=== PATIENT | female | born 1945 | race Caucasian/White ===

== ENCOUNTER 2016-09-17 14:07 | Observation (INO) | payer OTHER ==
[2016-09-16 20:00] VITALS: PULSE 79
[~2016-09-17] VITALS: Ht 165.1 cm; Wt 65.0 kg
[~2016-09-17 14:07] MED LIST: MECL25; NIFE90TA37; PREM0.622; Z.0.UNKNOWN
[2016-09-17 14:25] VITALS: BP 168/77; PULSE 84; RESP 18; TEMP 97; O2SAT 96
[2016-09-17 14:46] LABS: BASOPHIL # 0.1 TH/MM3 (0-0.2); BASOPHIL % 1.8 % (0.0-2.0); EOSINOPHIL # 0.2 TH/MM3 (0-0.4); EOSINOPHIL % 3.4 % (0.0-4.0); HEMATOCRIT 42.6 % (35.0-46.0); HEMO FLAGS DIFF FINAL; LYMPH % 31.9 % (9.0-44.0); LYMPHOCYTE # 1.8 TH/MM3 (1.0-4.8); MEAN CELL VOLUME 93.7 FL (80.0-100.0); MEAN CORPUSCULAR HEMOGLOBIN 32.2 PG (27.0-34.0); MEAN CORPUSCULAR HGB CONC 34.4 % (32.0-36.0); MONO % 10.6 % (0.0-8.0); NEUT % 52.3 % (16.0-70.0); PLATELET COUNT 166 TH/MM3 (150-450); RED BLOOD COUNT 4.55 MIL/MM3 (4.00-5.30); RED CELL DISTRIBUTION WIDTH 13.9 % (11.6-17.2); WHITE BLOOD COUNT 5.7 TH/MM3 (4.0-11.0)
--- NOTE | 2016-09-17 14:48 | PD ---
HPI Chief Complaint: Chest Pain Time Seen by Provider: 14:48 Travel History International Travel<30 days: No Contact w/Intl Traveler<30days: No Traveled to known affect area: No History of Present Illness HPI 70-year-old female came to the emergency room with history of left-sided chest pain radiating down her left arm. Patient started about 2 hours ago. Patient took 1 baby aspirin and called 911. She was given one sublingual nitroglycerin which he says helped ease the pain. Currently she has a pressure which is 7-8 out of 10. Patient has history of coronary artery disease. She has had stents put in in the last one was one year ago. It was done in [place]. Patient has history of hypertension and diabetes as well. She is currently a smoker. [facility] Past Medical History Narrative Medical List of her past medical, surgical, social and family history was reviewed from the nursing note. Musculoskeletal: Yes (CHRONIC BACK PAIN) Pancreatitis: Yes Past Surgical History Hysterectomy: Yes Social History Alcohol Use: No Tobacco Use: Yes (1 PACK DAILY) Allergies-Medications (Allergen,Severity, Reaction): Coded Allergies: Codeine (Verified Allergy, Mild, RASH, 05/28/06) Nut Tree (Verified Allergy, Mild, 05/28/06) Sulfa (Verified Allergy, Mild, SWELLING, 05/28/06) Comments List of her allergies reviewed from the nursing note. Reported Meds & Prescriptions Reported Meds & Active Scripts Active Reported Metformin (Metformin HCl) 500 Mg Tab 500 Mg PO BID With meals Prednisone 5 Mg Tab 5 Mg PO DAILY Lisinopril 40 Mg Tab 50 Mg PO BID Simvastatin 40 Mg Tab 40 Mg PO HS Nifedipine ER (Nifedipine) 90 Mg Tab 90 Mg PO DAILY Meclizine (Meclizine HCl) 25 Mg Tab 25 Mg PO DIRECTED PRN Narrative Medication List of her home medications reviewed from the nursing note. Review of Systems Except as stated in HPI: all other systems reviewed are Neg Physical Exam Narrative GENERAL: Awake, alert, moderate distress SKIN: Focused skin assessment warm/dry. HEAD: Atraumatic. Normocephalic. EYES: Pupils equal and round. No scleral icterus. No injection or drainage. ENT: No nasal bleeding or discharge. Mucous membranes pink and moist. NECK: Trachea midline. No JVD. CARDIOVASCULAR: Regular rate and rhythm. No murmur appreciated. RESPIRATORY: No accessory muscle use. Clear to auscultation. Breath sounds equal bilaterally. GASTROINTESTINAL: Abdomen soft, non-tender, nondistended. Hepatic and splenic margins not palpable. MUSCULOSKELETAL: No obvious deformities. No clubbing. No cyanosis. No edema. NEUROLOGICAL: Awake and alert. No obvious cranial nerve deficits. Motor grossly within normal limits. Normal speech. PSYCHIATRIC: Appropriate mood and affect; insight and judgment normal. Data Data Last Documented VS Vital Signs Date Time Temp Pulse Resp B/P Pulse Ox O2 Delivery O2 Flow Rate FiO2 09/17/16 14:25 97.0 84 18 168/77 96 Orders Electrocardiogram (09/17/16 14:14) Complete Blood Count With Diff (09/17/16 14:14) Basic Metabolic Panel (Bmp) (09/17/16 14:14) Ckmb (Isoenzyme) Profile (09/17/16 14:14) Troponin I (09/17/16 14:14) Chest, Single Ap (09/17/16 14:14) Iv Access Insert/Monitor (09/17/16 14:14) Ecg Monitoring (09/17/16 14:14) Oxygen Administration (09/17/16 14:14) Oximetry (09/17/16 14:14) Nitroglycerin Sl (Nitrostat Sl) (09/17/16 15:00) Admit Order (Ed Use Only) (09/17/16 15:14) Labs Laboratory Tests Test 09/17/16 14:25 White Blood Count 5.7 TH/MM3 Red Blood Count 4.55 MIL/MM3 Hemoglobin 14.6 GM/DL Hematocrit 42.6 % Mean Corpuscular Volume 93.7 FL Mean Corpuscular Hemoglobin 32.2 PG Mean Corpuscular Hemoglobin 34.4 % Concent Red Cell Distribution Width 13.9 % Platelet Count 166 TH/MM3 Mean Platelet Volume 9.4 FL Neutrophils (%) (Auto) 52.3 % Lymphocytes (%) (Auto) 31.9 % Monocytes (%) (Auto) 10.6 % Eosinophils (%) (Auto) 3.4 % Basophils (%) (Auto) 1.8 % Neutrophils # (Auto) 3.0 TH/MM3 Lymphocytes # (Auto) 1.8 TH/MM3 Monocytes # (Auto) 0.6 TH/MM3 Eosinophils # (Auto) 0.2 TH/MM3 Basophils # (Auto) 0.1 TH/MM3 CBC Comment DIFF FINAL Differential Comment Sodium Level 139 MEQ/L Potassium Level 4.5 MEQ/L Chloride Level 105 MEQ/L Carbon Dioxide Level 31.2 MEQ/L Anion Gap 3 MEQ/L Blood Urea Nitrogen 24 MG/DL Creatinine 1.05 MG/DL Estimat Glomerular Filtration 52 ML/MIN Rate Random Glucose 132 MG/DL Calcium Level 9.2 MG/DL Total Creatine Kinase 79 U/L Troponin I LESS THAN 0.02 NG/ML MDM Medical Decision Making Medical Screen Exam Complete: Yes Emergency Medical Condition: Yes Medical Record Reviewed: Yes Interpretation(s) Twelve-lead EKG was reviewed by me. Normal sinus rhythm, normal axis, nonspecific ST-T wave changes. Heart rate of 84 bpm. Differential Diagnosis ACS, non-STEMI, nonspecific chest pain Narrative Course 3:13 PM blood test results of back and troponin is negative. Patient was given one sublingual nitroglycerin. I will admit her to the chest pain center for rule out given all her risk factors. Procedures EKG Prior to Arrival: Yes Diagnosis Primary Impression: Chest pain Qualified Code: R07.9 - Chest pain, unspecified type Admitting Information Admitting Physician Requests: Observation Dianne Nation MD Sep 17, 2016 14:48
[2016-09-17] MEDS ORDERED: NITROGLYCERIN 0.4 MG SL 25 TABS/BTL SL ONE (15:00)
[2016-09-17 15:06] LABS: ANION GAP 3 MEQ/L (5-15); BICARBONATE 31.2 MEQ/L (21.0-32.0); BLOOD UREA NITROGEN 24 MG/DL (7-18); CHLORIDE 105 MEQ/L (98-107); GLOMERULAR FILTRATION RATE 52 ML/MIN (>89); SODIUM (NA) 139 MEQ/L (136-145)
[2016-09-17 15:09] LABS: CREATINE KINASE 79 U/L (26-192); POTASSIUM 4.5 MEQ/L (3.5-5.1)
--- NOTE | 2016-09-17 15:30 | RADRPT ---
EXAM DATE/TIME: 09/17/2016 14:29 [facility] COMPARISON: No previous studies available for comparison. INDICATIONS : Chest pressure. MEDICAL HISTORY : Congestive heart failure. 4 strokes SURGICAL HISTORY : None. ENCOUNTER: Initial ACUITY: 1 day PAIN SCORE: 8/10 LOCATION: Bilateral chest FINDINGS: A single view of the chest demonstrates the lungs to be symmetrically aerated without evidence of mas s, infiltrate or effusion. The cardiomediastinal contours are unremarkable. Osseous structures are intact. CONCLUSION: No acute disease. Raj Miner MD on September 17, 2016 at 15:28 Board Certified Radiologist. This report was verified electronically.
[2016-09-17 15:35] VITALS: BP 186/84; PULSE 74; RESP 20; O2SAT 95
[2016-09-17] MEDS ORDERED: NIFE90TA2 PO (15:37)
[2016-09-17] MEDS ORDERED: MECL-62 PO (15:37)
[2016-09-17] MEDS ORDERED: SIMV40TA PO (15:37)
[2016-09-17] MEDS ORDERED: LISI40TA PO (15:37)
[2016-09-17] MEDS ORDERED: PRED5TAB PO (15:38)
[2016-09-17] MEDS ORDERED: METF500T PO (15:39)
[2016-09-17 15:47] VITALS: BP 188/80; PULSE 76; O2SAT 94
[2016-09-17 17:06] VITALS: BP 160/81
[2016-09-17] MEDS ORDERED: GLUCAGON 1 MG/ML VIAL IM/SQ PRN (17:30)
[2016-09-17] MEDS ORDERED: SODIUM CHLORIDE 0.9% FLUSH 5 ML FLUSH IVF PRN (17:30)
[2016-09-17] MEDS ORDERED: ONDANSETRON HCL 4 MG/2 ML VIAL IV PRN (17:30)
[2016-09-17] MEDS ORDERED: RESP: ALBUTEROL 2.5 MG/IPRATROPIUM 0.5 MG NEB (PRN) INH (17:30)
[2016-09-17] MEDS ORDERED: cloNIDine HCL 0.1 MG TAB PO PRN (17:30)
[2016-09-17] MEDS ORDERED: ALPRAZolam 0.25 MG TAB PO PRN (17:30)
[2016-09-17] MEDS ORDERED: DEXTROSE 50% IN WATER 50 ML VIAL(D50) IV PRN (17:30)
--- NOTE | 2016-09-17 17:37 | HHI.HP ---
[facility] Primary Care Physician Desean Merino DO Chief Complaint Chest pain History of Present Illness This is a 70-year-old female that presents to the ED with history of CAD, peripheral vascular disease, diabetes, hypertension, hyperlipidemia, lupus, and tobacco abuse with a complaint of chest discomfort. She states that she developed a left-sided sharp chest discomfort today and then soon later turned into a discomfort as if somebody was sitting on her chest. This is similar to when she her stent last year. She took a baby aspirin and called 911. She was given 1 subluminal nitroglycerin which did seem to help discomfort. Her only patient denies chest discomfort. She was short of breath but denies nausea or diaphoresis with her symptoms. She recently moved here from [place]. She does not have a local sausage stringer. Dr. Merino is her primary care physician. Review of Systems General: Patient denies fevers, chills recent, and recent travel HEENT: Patient denies headache, sore throat, difficulty swallowing. Cardiovascular: Has the chest discomfort as mentioned above. Denies sensation of heart beating rapidly or irregularly. No syncope. Denies diaphoresis. Respiratory: Patient has intermittent short of breath. Denies inspirational chest discomfort. Denies coughing wheezing or hemoptysis. GI: Patient denies nausea, vomiting, diarrhea, abdominal pain, bloody stools. Musculoskeletal: Patient denies joint pain or edema. Denies calf pain or edema. Neurovascular: Patient denies numbness, tingling, weakness in extremities. Denies headache. Endocrine: Denies polyuria and polydipsia. Hematologic: Denies easy bruising. Skin: Denies rash or itching. Past Family Social History Allergies: Coded Allergies: Codeine (Verified Allergy, Mild, RASH, 05/28/06) Nut Tree (Verified Allergy, Mild, 05/28/06) Sulfa (Verified Allergy, Mild, SWELLING, 05/28/06) Past Medical History CAD with a reported stent about a year ago in [place]. Peripheral vascular disease with reported bilateral femoropopliteal bypass while in [place]. Diabetes , hypertension, hyperlipidemia, lupus, and tobacco abuse. Past Surgical History Heart catheterization with stenting about a year ago. Bilateral femoropopliteal bypass. Hysterectomy. Reported Medications Reported Meds & Active Scripts Active Reported Metformin (Metformin HCl) 500 Mg Tab 500 Mg PO BID With meals Prednisone 5 Mg Tab 5 Mg PO DAILY Lisinopril 40 Mg Tab 50 Mg PO BID Simvastatin 40 Mg Tab 40 Mg PO HS Nifedipine ER (Nifedipine) 90 Mg Tab 90 Mg PO DAILY Meclizine (Meclizine HCl) 25 Mg Tab 25 Mg PO DIRECTED PRN Active Ordered Medications Current Medications Medications (Trade) Dose Ordered Sig/Omnica Route Start Time Stop Time Status Last Admin (Deltasone) 5 mg DAILY PO 09/18/16 09:00 (Procardia Xl) 90 mg DAILY PO 09/18/16 09:00 (Pravachol) 80 mg HS PO 09/17/16 21:00 (NS Flush) 2 ml UNSCH PRN IVF 09/17/16 17:30 UNV (NS Flush) 2 ml BID IVF 09/17/16 21:00 UNV (Tylenol) 500 mg Q4H PRN PO 09/17/16 17:30 UNV (Zofran Inj) 4 mg Q6H PRN IV 09/17/16 17:30 UNV (Xanax) 0.25 mg Q8H PRN PO 09/17/16 17:30 UNV (Catapres) 0.1 mg Q4H PRN PO 09/17/16 17:30 UNV (D50w (Vial) Inj) 25 ml UNSCH PRN IV 09/17/16 17:30 UNV (Glucagon Inj) 1 mg UNSCH PRN IM/SQ 09/17/16 17:30 UNV Family History There is family history of CAD. Social History Patient smokes approximately one pack of cigarettes daily. Physical Exam Vital Signs Vital Signs Date Time Temp Pulse Resp B/P Pulse Ox O2 Delivery O2 Flow Rate FiO2 09/17/16 17:06 160/81 09/17/16 15:47 76 188/80 94 09/17/16 15:38 Room Air 09/17/16 15:35 74 20 186/84 95 Room Air 09/17/16 14:25 97.0 84 18 168/77 96 Physical Exam GENERAL: This is a well-nourished, well-developed patient, in no apparent distress. Patient speaks in clear complete sentences. Patient is pleasant. HEENT: Head is atraumatic and normocephalic. Neck is supple without lymphadenopathy and trachea is midline. No JVD or carotid bruits. CARDIOVASCULAR: Regular rate and rhythm without murmurs, gallops, or rubs. RESPIRATORY: Some scattered rhonchi. No wheezing or rales. Breath sounds equal bilaterally. Chest wall is tender which is a sharp discomfort that she was having. No use of accessory muscles. GASTROINTESTINAL: Abdomen is nontender, nondistended. Abdomen soft. No obvious pulsatile mass or bruit. No CVA tenderness. Strong femoral pulses bilaterally with bilateral femoral bruits. Normal bowel sounds in all quadrants. MUSCULOSKELETAL: Patient is moving upper and lower extremities freely. No calf tenderness or edema, no Homans sign. Strong pulses in upper extremities. No palpable dorsalis pedis or posterior tibial pulses bilaterally. However feet are warm. NEUROLOGICAL: Patient is alert and oriented. Cranial nerves 2-12 are grossly intact. No focal deficits and speech is clear. SKIN: No rash and turgor is normal. Laboratory Laboratory Tests Test 09/17/16 14:25 White Blood Count 5.7 Red Blood Count 4.55 Hemoglobin 14.6 Hematocrit 42.6 Mean Corpuscular Volume 93.7 Mean Corpuscular Hemoglobin 32.2 Mean Corpuscular Hemoglobin 34.4 Concent Red Cell Distribution Width 13.9 Platelet Count 166 Mean Platelet Volume 9.4 Neutrophils (%) (Auto) 52.3 Lymphocytes (%) (Auto) 31.9 Monocytes (%) (Auto) 10.6 Eosinophils (%) (Auto) 3.4 Basophils (%) (Auto) 1.8 Neutrophils # (Auto) 3.0 Lymphocytes # (Auto) 1.8 Monocytes # (Auto) 0.6 Eosinophils # (Auto) 0.2 Basophils # (Auto) 0.1 CBC Comment DIFF FINAL Differential Comment Sodium Level 139 Potassium Level 4.5 Chloride Level 105 Carbon Dioxide Level 31.2 Anion Gap 3 Blood Urea Nitrogen 24 Creatinine 1.05 Estimat Glomerular Filtration 52 Rate Random Glucose 132 Calcium Level 9.2 Total Creatine Kinase 79 Troponin I LESS THAN 0.02 Result Diagram: 09/17/16 1425 09/17/16 1425 Imaging Last 24 hours Impressions Chest X-Ray 09/17/16 1414 Signed Impressions: Service Date/Time: August 14:29 - CONCLUSION: No acute disease. Raj Miner MD Course Initial EKG has sinus rhythm without any significant ST segment depressions or elevations. Assessment and Plan Assessment and Plan * Chest pain: Patient will continue to have serial cardiac enzymes and EKGs for ruling out purposes. She has been evaluated by Dr. Mcdaniel of cardiology in the chest pain center and will likely undergo a Lexiscan if she rules out. She would likely be discharged home if her stress test were to be nonischemic with instructions to follow-up with a local primary care physician as well as sausage stringer. * CAD: We'll reassess with stress testing. She will need to follow sausage stringer. * Hypertension: Continue current medication. * Hyperlipidemia: Continue current medication. * Diabetes: Hold metformin, cover with sliding scale coverage. She will be on a diabetic diet has been encouraged to follow same at discharge. She will likely resume her metformin at discharge as long as she has no contrast studies. * Peripheral vascular disease: Continue current medications. * Lupus: Continue current medications. * Tobacco abuse: Patient has been counseled on the importance of smoking cessation. Patient is stable at this time. She is agreeable to this plan. Guillermo Morales Sep 17, 2016 17:37
[2016-09-17 18:49] LABS: CREATINE KINASE 89 U/L (26-192)
[2016-09-17 19:34] VITALS: PULSE 79
[2016-09-17 20:00] VITALS: BP 182/80; PULSE 75; RESP 22; TEMP 96.1; O2SAT 95
[2016-09-17] MEDS: SODIUM CHLORIDE 0.9% FLUSH 5 ML FLUSH IVF SCH (21:00)
[2016-09-17] MEDS ORDERED: PRAVASTATIN SOD 80 MG TAB PO SCH (21:00)
[2016-09-17 22:16] LABS: CREATINE KINASE 82 U/L (26-192)
[2016-09-17] MEDS: INSULIN ASPART SUPPLEMENTAL SCALE SQ SCH (22:37)
[2016-09-18] VITALS (11 sets, daily range): BP systolic 111–177; BP diastolic 56–78; PULSE 65–93; RESP 18–20; TEMP 96.1–98.2; O2SAT 94–96
[2016-09-18] MEDS: ACETAMINOPHEN 500 MG CPLT PO PRN ×2 (03:26→08:35)
[2016-09-18] MEDS: INSULIN ASPART SUPPLEMENTAL SCALE SQ SCH ×2 (05:30→11:00)
[2016-09-18] MEDS: SODIUM CHLORIDE 0.9% FLUSH 5 ML FLUSH IVF SCH (08:34)
[2016-09-18] MEDS ORDERED: NIFEdipine 90 MG SUSTAINED RELEASE TAB PO SCH (09:00)
[2016-09-18] MEDS ORDERED: predniSONE 5 MG TAB PO SCH (09:00)
[2016-09-18] MEDS ORDERED: REGADENOSON INJ 0.4 MG/5 ML SYR ONE (09:59)
[2016-09-18] MEDS ORDERED: TRAM50TA PO (11:09)
[2016-09-18] MEDS ORDERED: CREON12 PO (11:09)
--- NOTE | 2016-09-18 11:38 | RADRPT ---
EXAM DATE/TIME: 09/18/2016 09:20 [facility] COMPARISON: No previous studies available for comparison. INDICATIONS : Left sided chest pain for 1 day. Angina. Coronary artery disease. DOSE: 25.5 mCi Tc99m Myoview at stress. 8.1 mCi Tc99m Myoview at rest. 0.4 mg Lexiscan STRESS SYMPTOMS: Chest pressure with shortness of breath. EJECTION FRACTION: 69% MEDICAL HISTORY : Myocardial infarction. Congestive heart failure. Diabetes mellitus type 2. SURGICAL HISTORY : CABG Coronary artery stent. Back surgery. ENCOUNTER: Initial ACUITY: 1 day PAIN SCALE: 3/10 LOCATION: Left chest TECHNIQUE: The patient underwent pharmacologic stress with infusion of prescribed dose. Continuous ECG tracing was monitored during stress. Gated SPECT imaging was performed after stress and conventional SPECT i maging was performed at rest. The examination was performed on a SPECT/CT scanner, both attenuation and non-corrected datasets were reviewed. FINDINGS: DISTRIBUTION: The maximum perfused segment at stress is in the anteroseptal wall. PERFUSION STUDY: The pattern of perfusion at stress demonstrates a fixed defect in the anterolateral wall without any significant ischemia. GATED STUDY: There is intact wall motion and thickening without hypokinetic or dyskinetic segments. CONCLUSION: No appreciable ischemia. RISK CATEGORY: Low (<1% Annual Mortality Rate) Artem Blackwood MD on September 18, 2016 at 11:34 Board Certified Radiologist. This report was verified electronically.
--- NOTE | 2016-09-18 12:00 | HHI.DCPOC ---
Discharge Care Plan Diagnosis: (1) Chest wall pain (2) Hx of coronary artery disease Goals to Promote Your Health * To prevent worsening of your condition and complications * To maintain your health at the optimal level Directions to Meet Your Goals Take your medications as prescribed Follow your dietary instruction Follow activity as directed Keep your appointments as scheduled Take your immunizations and boosters as scheduled If your symptoms worsen call your PCP, if no PCP go to Urgent Care Center or Emergency Room Smoking is Dangerous to Your Health. Avoid second hand smoke Call the 24-hour hour crisis hotline for domestic abuse at [place] Sep 18, 2016 12:00
--- NOTE | 2016-09-18 13:09 | EKG ---
Date Performed: 09/17/2016 Time Performed: 21:33:40 PTAGE: 70 years EKG: Sinus rhythm POSSIBLE LEFT ATRIAL ENLARGEMENT Poor R wave progression ABNORMAL ECG PREVIOUS TRACING : 09/17/2016 17.54 Since previous tracing, no significant change noted DOCTOR: Nomi Mcdaniel Interpretating Date/Time 09/18/2016 13:08:23
--- NOTE | 2016-09-18 13:11 | EKG ---
Date Performed: 09/17/2016 Time Performed: 17:50:13 PTAGE: 70 years EKG: Sinus rhythm ARM LEADS REVERSED ATYPICAL ECG PREVIOUS TRACING : 09/17/2016 14.18 Compared to previous tracing ,limb lead reversal is new. DOCTOR: Nomi Mcdaniel Interpretating Date/Time 09/18/2016 13:10:37
--- NOTE | 2016-09-18 13:12 | EKG ---
Date Performed: 09/17/2016 Time Performed: 14:18:16 PTAGE: 70 years EKG: Sinus rhythm Poor R wave progression ABNORMAL ECG NO PREVIOUS TRACING DOCTOR: Nomi Mcdaniel Interpretating Date/Time 09/18/2016 13:11:58
--- NOTE | 2016-09-21 15:05 | TR ---
Date Performed: 09/18/2016 Time Performed: 09:49:54 DOCTOR: Blair Rios DRUG LIST: CLINICAL HISTORY: ANGINA REASON FOR TEST: Angina REASON FOR ENDING: OBSERVATION: CONCLUSION: Lexiscan stress test was performed under standard four minute protocol. Radionuclid e was injected one minute prior to ending the test. No electrocardiographic abormalities were present to suggest ischemia. Nuclear imaging and interpretation are pending. COMMENTS:
== END 2016-09-18 14:17 | disposition home or self-care (01) ==
LOC: NEPE 14:07 → NEDA 15:16 → NEPHCDU 18:16
DX: R07.9 Chest pain, unspecified (principal); I25.10 Atherosclerotic heart disease of native coronary artery without angina pectoris; I10 Essential (primary) hypertension; E11.51 Type 2 diabetes mellitus with diabetic peripheral angiopathy without gangrene; F17.210 Nicotine dependence, cigarettes, uncomplicated; M54.9 Dorsalgia, unspecified; G89.29 Other chronic pain; Z79.84 Long term (current) use of oral hypoglycemic drugs; Z79.899 Other long term (current) drug therapy; R06.02 Shortness of breath; E78.5 Hyperlipidemia, unspecified; R94.31 Abnormal electrocardiogram [ECG] [EKG]; Z95.5 Presence of coronary angioplasty implant and graft
CPT/HCPCS: 71010; 78452; 80048; 82550; 82948; 84484; 85025; 93005; 93017; 99285; A9502; G0378; J1815; J2785; J7512

== ENCOUNTER 2017-09-30 11:35 | Emergency (ER) | payer OTHER ==
[~2017-09-30] VITALS: Ht 160 cm; Wt 58.1 kg
[~2017-09-30 11:35] MED LIST changes: +CREON12 PO; +LISI40TA PO; +MECL-62 PO; -MECL25; +METF500T PO; +NIFE90TA2 PO; -NIFE90TA37; +PRED5TAB PO; -PREM0.622; +SIMV40TA PO; +TRAM50TA PO; -Z.0.UNKNOWN
[2017-09-30 11:39] VITALS: BP 161/70; PULSE 88; RESP 16; TEMP 97.8; O2SAT 100
[2017-09-30] MEDS ORDERED: LISI40TA PO (11:49)
[2017-09-30] MEDS ORDERED: ASPI81CH7 CHEW (11:57)
[2017-09-30] MEDS ORDERED: OXYMETAZOLINE HCL 0.05% 15 ML NASAL SPRAY NASAL ONE (12:00)
[2017-09-30] MEDS ORDERED: PLAV75TA29 PO (12:09)
[2017-09-30] MEDS ORDERED: AUGM875T3 PO ×2 (12:20→12:31)
--- NOTE | 2017-09-30 12:21 | PD ---
HPI Chief Complaint: Nosebleed Time Seen by Provider: 12:14 Travel History International Travel<30 days: No Contact w/Intl Traveler<30days: No Traveled to known affect area: No History of Present Illness HPI 71-year-old female here for evaluation of nosebleed intermittently for the last 10 days. She reports the left nare has bled several times over the last 10 days. Each episode lasts less than 5 minutes and is resolved with applying pressure. She reports she had sinus congestion and pain similar to a sinus infection prior to the original bleed. She did have a Rhino Rocket placed by [facility] in [place] 5 days ago. She reports she was not referred to ENT. Patient currently takes Plavix and reports compliance with her medication. She denies unexplained bruising or bleeding gums. No dizziness, chest pain, shortness of breath, weakness. This morning while shopping she reports she sneezes which caused a left nare to bleed prompting her visit. Bleeding stopped upon arrival to ED. PFSH Past Medical History Hx Anticoagulant Therapy: Yes (Plavix) Heart Rhythm Problems: Yes ("stops every 5th beat") Cardiac Catheterization: Yes (x2) Cardiovascular Problems: Yes High Cholesterol: Yes Chemotherapy: Yes Congestive Heart Failure: No Diabetes: Yes Patient Takes Glucophage: Yes Diminished Hearing: No Gastrointestinal Disorders: Yes GERD: Yes Heparin Induced Thrombocytopen: No Hypertension: Yes Musculoskeletal: Yes (CHRONIC BACK PAIN) Pancreatitis: Yes Triglycerides - High: Yes ?: Not Past Surgical History Coronary Artery Bypass Graft: Yes (triple bypass) Hysterectomy: Yes (complete) Family History Family Myocardial Infarction: Yes (Maternal of [place]) Social History Alcohol Use: No Tobacco Use: Yes (1/2 PACK DAILY) Substance Use: No Allergies-Medications (Allergen,Severity, Reaction): Coded Allergies: Sulfa (Sulfonamide Antibiotics) (Unverified Allergy, Mild, SWELLING, ) codeine (Unverified Allergy, Mild, RASH, 09/30/17) tree nut (Unverified Allergy, Mild, 09/30/17) Reported Meds & Prescriptions Reported Meds & Active Scripts Active Augmentin (Amoxicillin-Clavulanate) 875-125 Mg Tab 1 Tab PO BID Reported Plavix (Clopidogrel Bisulfate) 75 Mg Tab 75 Mg PO DAILY Aspirin Children's (Aspirin) 81 Mg Chew 81 Mg CHEW DAILY Lisinopril 40 Mg Tab 50 Mg PO DAILY Creon (Amylase/Lipase/Protease) 12,000-38,000-60,000 Units Cap 1 Cap PO TIDPC Tramadol (Tramadol HCl) 50 Mg Tab 50 Mg PO TID PRN Metformin (Metformin HCl) 500 Mg Tab 500 Mg PO BID With meals Simvastatin 40 Mg Tab 40 Mg PO HS Nifedipine ER (Nifedipine) 90 Mg Tab 90 Mg PO DAILY Review of Systems Except as stated in HPI: all other systems reviewed are Neg General / Constitutional: No: Fever Eyes: No: Visual changes HENT: Positive: Nosebleed, No: Headaches Cardiovascular: No: Chest Pain or Discomfort Respiratory: No: Shortness of Breath Gastrointestinal: No: Abdominal Pain Genitourinary: No: Dysuria Musculoskeletal: No: Pain Skin: No Rash Neurologic: No: Weakness Physical Exam Narrative GENERAL: Alert and well-appearing 8-year-old female. Resting comfortably on stretcher. SKIN: Warm and dry. No areas of ecchymosis HEAD: Normocephalic. EYES: No scleral icterus. No injection or drainage. ENT: Left nare. Scant amount of blood within the nare. No active bleeding. No visible bleeding site. No bleeding in the oropharynx. Uvula is midline. Airways patent. NECK: Supple, trachea midline. No JVD or lymphadenopathy. CARDIOVASCULAR: Regular rate and rhythm without murmurs, gallops, or rubs. RESPIRATORY: Breath sounds equal bilaterally. No accessory muscle use. GASTROINTESTINAL: Abdomen soft, non-tender, nondistended. MUSCULOSKELETAL: No cyanosis, or edema. BACK: Nontender without obvious deformity. No CVA tenderness. Data Data Last Documented VS Vital Signs Date Time Temp Pulse Resp B/P (MAP) Pulse Ox O2 Delivery O2 Flow Rate FiO2 09/30/17 11:39 97.8 88 16 161/70 (100) 100 Orders Orders Oxymetazoline 0.05% Osman Kingman (Afrin 0.0 (09/30/17 12:00) MDM Medical Decision Making Medical Screen Exam Complete: Yes Emergency Medical Condition: Yes Differential Diagnosis Epistaxis epistaxis, anterior nosebleed, posterior nosebleed, sinusitis Narrative Course 71-year-old female here with epistaxis to the left nare intermittently 10 days. She reports symptoms of sinusitis which she attributes to the epistaxis. At time of exam the bleeding stopped. Afrin nasal spray administered. Patient was observed for 1 hour in the ED with no rebleed. Augmentin will be prescribed. patient is referred to ENT for follow-up. Diagnosis Primary Impression: Epistaxis Referrals: Teo Benítez MD,Jovanni Posadas,David Copeland MD Ear / Nose / Throat Specialist Additional Instructions: If rebleed occurs apply constant pressure for 10-15 minutes. If bleeding continues administer several sprays of Afrin into the left nare and apply pressure. Return to ED if bleeding continues. Follow-up with ENT Scripts Amoxicillin-Clavulanate (Augmentin) 875-125 Mg Tab 1 TAB PO BID for Infection, #20 TAB 0 Refills Prov: Valerie Estrella 09/30/17 Disposition: 01 DISCHARGE HOME Condition: Stable Valerie Estrella September 30, 2017 12:21
== END 2017-09-30 12:45 | disposition home or self-care (01) ==
LOC: PHEFT 11:35
DX: R04.0 Epistaxis (principal); R09.81 Nasal congestion; E78.00 Pure hypercholesterolemia, unspecified; E11.9 Type 2 diabetes mellitus without complications; K21.9 Gastro-esophageal reflux disease without esophagitis; I10 Essential (primary) hypertension; E78.1 Pure hyperglyceridemia; Z87.19 Personal history of other diseases of the digestive system; Z79.02 Long term (current) use of antithrombotics/antiplatelets
CPT/HCPCS: 99283

== ENCOUNTER 2017-09-30 19:48 | Emergency (ER) | payer OTHER ==
[~2017-09-30 19:48] MED LIST changes: +ASPI81CH7 CHEW; +AUGM875T3 PO; +PLAV75TA29 PO
[2017-09-30 20:08] VITALS: BP 165/74; PULSE 94; RESP 16; TEMP 97.3; O2SAT 97
[2017-09-30] MEDS ORDERED: SILVER NITR/POTASSIUM NITRATE APPLICATORS TOPICAL ONE (20:30)
--- NOTE | 2017-09-30 20:34 | PD ---
HPI Chief Complaint: Nosebleed Time Seen by Provider: 20:19 Travel History International Travel<30 days: No Contact w/Intl Traveler<30days: No Traveled to known affect area: No History of Present Illness HPI The patient was seen and examined in the presence of the nurse. This patient has been having nosebleed problems for the last 2 weeks. Is intermittent. It bleeds from the left nostril. She has been on aspirin and Plavix which she stopped 2 days ago. No injury to the nose. She had a Rhino Rocket placed in [place] recently. She has not seen an ENT physician. She went to the [place] emergency room earlier today but the bleeding had stopped prior to arrival. She was bleeding earlier and came to the emergency room here at [facility] but the bleeding is essentially stopped as well. Symptom severity is mild. PFSH Past Medical History Hx Anticoagulant Therapy: Yes Heart Rhythm Problems: Yes ("stops every 5th beat") Cardiac Catheterization: Yes (x2) Cardiovascular Problems: Yes High Cholesterol: Yes Chemotherapy: Yes Congestive Heart Failure: No Cerebrovascular Accident: Yes Diabetes: Yes Diminished Hearing: No Gastrointestinal Disorders: Yes GERD: Yes Heparin Induced Thrombocytopen: No Hypertension: Yes Musculoskeletal: Yes (CHRONIC BACK PAIN) Pancreatitis: Yes Triglycerides - High: Yes ?: Not Past Surgical History Coronary Artery Bypass Graft: Yes (triple bypass) Hysterectomy: Yes Social History Alcohol Use: No Tobacco Use: Yes (1/2 PACK DAILY) Substance Use: No Allergies-Medications (Allergen,Severity, Reaction): Coded Allergies: Sulfa (Sulfonamide Antibiotics) (Verified Allergy, Mild, SWELLING, 09/30/17) codeine (Verified Allergy, Mild, RASH, 09/30/17) tree nut (Verified Allergy, Mild, 09/30/17) Reported Meds & Prescriptions Reported Meds & Active Scripts Active Augmentin (Amoxicillin-Clavulanate) 875-125 Mg Tab 1 Tab PO BID Reported Plavix (Clopidogrel Bisulfate) 75 Mg Tab 75 Mg PO DAILY Aspirin Children's (Aspirin) 81 Mg Chew 81 Mg CHEW DAILY Lisinopril 40 Mg Tab 50 Mg PO DAILY Creon (Amylase/Lipase/Protease) 12,000-38,000-60,000 Units Cap 1 Cap PO TIDPC Tramadol (Tramadol HCl) 50 Mg Tab 50 Mg PO TID PRN Metformin (Metformin HCl) 500 Mg Tab 500 Mg PO BID With meals Simvastatin 40 Mg Tab 40 Mg PO HS Nifedipine ER (Nifedipine) 90 Mg Tab 90 Mg PO DAILY Review of Systems General / Constitutional: No: Fever Eyes: No: Visual changes HENT: Positive: Nosebleed, No: Headaches Cardiovascular: No: Chest Pain or Discomfort Respiratory: No: Shortness of Breath Gastrointestinal: No: Abdominal Pain Genitourinary: No: Dysuria Musculoskeletal: No: Pain Skin: No Rash Neurologic: No: Weakness Psychiatric: No: Depression Endocrine: No: Polydipsia Hematologic/Lymphatic: No: Easy Bruising Physical Exam Narrative GENERAL: Well-nourished, well-developed patient in no apparent distress. SKIN: Focused skin assessment reveals no rash and nodules. Skin is Warm and dry. HEAD: Atraumatic. Normocephalic. EYES: Pupils equal and round. No scleral icterus. No injection or drainage. ENT: Right nostril is clear. The left nostril has a tiny scant amount of mostly dried blood in the anterior portion. No real active bleeding. Mucous membranes pink and moist. NECK: Trachea midline. No JVD. CARDIOVASCULAR: Regular rate and rhythm. No murmur appreciated. RESPIRATORY: No accessory muscle use. Clear to auscultation. Breath sounds equal bilaterally. GASTROINTESTINAL: Abdomen soft, non-tender, nondistended. Hepatic and splenic margins not palpable. MUSCULOSKELETAL: No obvious deformities. No clubbing. No cyanosis. No edema. NEUROLOGICAL: Awake and alert. No obvious cranial nerve deficits. Motor grossly within normal limits. Normal speech. PSYCHIATRIC: Appropriate mood and affect; insight and judgment normal. Data Data Last Documented VS Vital Signs Date Time Temp Pulse Resp B/P (MAP) Pulse Ox O2 Delivery O2 Flow Rate FiO2 09/30/17 20:08 97.3 94 16 165/74 (104) 97 Orders Orders Silver Nitrate Applicators (Silver Nitra (09/30/17 20:30) MDM Medical Decision Making Medical Screen Exam Complete: Yes Emergency Medical Condition: Yes Medical Record Reviewed: Yes Differential Diagnosis Epistaxis, nasal trauma, polyp Narrative Course I have reviewed the patient's electronic medical record. Procedure note: I rolled one after another 5 silver nitrate sticks across the mucosa of the left anterior nares. I cauterized the oozing sites She tolerated it well On reevaluation there is no bleeding She will follow-up with ENT, will call tomorrow for follow-up appointment and stop aspirin and Plavix for the meantime given she has had numerous ER visits for nosebleed in the last 2 weeks Diagnosis Primary Impression: Epistaxis Additional Instructions: Follow-up with ENT physician Hold aspirin and Plavix for now and discuss this with your physician Med/Other Pt SpecificInfo: Other Disposition: 01 DISCHARGE HOME Condition: Stable Jose Denton MD September 30, 2017 20:34
== END 2017-09-30 21:05 | disposition home or self-care (01) ==
LOC: NEPD 19:48
DX: R04.0 Epistaxis (principal); E11.9 Type 2 diabetes mellitus without complications; E78.00 Pure hypercholesterolemia, unspecified; I10 Essential (primary) hypertension; F17.200 Nicotine dependence, unspecified, uncomplicated; Z79.02 Long term (current) use of antithrombotics/antiplatelets; Z79.84 Long term (current) use of oral hypoglycemic drugs
CPT/HCPCS: 30901